=== PATIENT | female | born 1950 | race Caucasian/White ===

== ENCOUNTER → 2017-04-29 | Outpatient (CLI) | payer BC ==
[~2017-04-29] MED LIST: BENZ-13 PO; CEFD300C3 PO; CLOP75TA69 PO
--- NOTE | 2017-04-29 12:19 | Diagnostic Imaging Report ---
INDICATION: Digital mammogram bilateral screening. This study was compared to the prior exam of 04/21/16 and 03/25/15. At this time, there are no current complaints. The current study was also evaluated with a Computer Aided Detection (CAD) system. FINDINGS: There are scattered fibroglandular densities in both breasts which could obscure a lesion. Overall, there does not appear to have been any significant change when compared to the prior exam. No primary or secondary sign of malignancy is noted. IMPRESSION: There is no radiographic evidence for malignancy. ACR BI-RADS Category 1: Negative. Result letter will be mailed to the patient. Note: At least 10% of breast cancer is not imaged by mammography. Dictated by: Dictated on workstation # [id number]
== END ==
LOC: RAD 10:29
PROVIDERS: ATTEND Internal Medicine
DX: Z12.31 Encounter for screening mammogram for malignant neoplasm of breast (principal)
CPT/HCPCS: 77067

== ENCOUNTER → 2018-06-27 | Outpatient (CLI) | payer MEDICARE, OTHER ==
[~2018-06-27] MED LIST changes: -BENZ-13 PO; +BENZ100C18 PO
--- NOTE | 2018-06-27 20:10 | Diagnostic Imaging Report ---
INDICATION: Routine screening. Comparison is made with prior mammogram from 04/29/2017 and 04/21/2016. 2-D and 3-D bilateral screening mammography was performed with a Computer Aided Detection (CAD) system. FINDINGS: Scattered fibronodular densities are identified bilaterally. The parenchymal pattern is stable. No mass or malignant appearing microcalcifications are seen. Axillae are unremarkable. IMPRESSION: No mammographic features suspicious for malignancy are identified. ACR BI-RADS Category 1: Negative. Result letter will be mailed to the patient. Note: At least 10% of breast cancer is not imaged by mammography. Dictated by: Dictated on workstation # [id number]
== END ==
LOC: RAD 11:04
PROVIDERS: ATTEND Internal Medicine
DX: Z12.31 Encounter for screening mammogram for malignant neoplasm of breast (principal)
CPT/HCPCS: 77067

== ENCOUNTER → 2018-11-20 | Outpatient (CLI) | payer MEDICARE, OTHER ==
[2018-11-20 08:50] LABS: CREATININE SERUM 0.93 MG/DL (0.60-1.30)
--- NOTE | 2018-11-20 10:14 | Diagnostic Imaging Report ---
PROCEDURE: CT chest with contrast only. TECHNIQUE: Multiple contiguous axial images were obtained through the chest after administration of intravenous contrast. Auto Exposure Controls were utilized during the CT exam to meet ALARA standards for radiation dose reduction. INDICATION: Shortness of breath. COMPARISON: Comparison is 01/01/2016. FINDINGS: There is severe upper lobe predominant centrilobular and paraseptal emphysema. There is no edema or pneumonia. No pneumothorax. No suspicious pulmonary nodules. Heart size is normal. No pericardial effusion. Aorta is normal in caliber. No central pulmonary embolism. No axillary, supraclavicular or mediastinal lymphadenopathy. Limited views of the upper abdomen reveal a few tiny hepatic lesions which are too small to characterize but almost certainly represent cysts. Gallbladder is normal. No biliary ductal dilation. Portal vein is patent. Pancreas and spleen are normal. There are no suspicious osseous lesions. IMPRESSION: 1. Severe upper lobe predominant paraseptal and centrilobular emphysema, unchanged. Dictated by: Dictated on workstation # [id number]
== END ==
LOC: RT 08:17
PROVIDERS: ATTEND Nurse Practitioner Family
DX: G47.34 Idiopathic sleep related nonobstructive alveolar hypoventilation (principal); J43.9 Emphysema, unspecified; R59.1 Generalized enlarged lymph nodes
CPT/HCPCS: 36415; 71260; 82565; 84520

== ENCOUNTER → 2018-11-22 | Outpatient (CLI) | payer MEDICARE, OTHER ==
[~2018-11-22] MED LIST changes: +RT-ALBUTEROL SULF 2.5 MG/3 ML PRE-MIX VIAL INH ONE; +RT-ALBUTEROL SULF 2.5 MG/3 ML PRE-MIX VIAL ONE
== END ==
LOC: RT 15:53
PROVIDERS: ATTEND Nurse Practitioner Family
DX: J43.9 Emphysema, unspecified (principal); R59.1 Generalized enlarged lymph nodes
CPT/HCPCS: 94060; 94726; 94729

== ENCOUNTER → 2018-12-07 | Outpatient (CLI) | payer MEDICARE, OTHER ==
[~2018-12-07] MED LIST changes: -RT-ALBUTEROL SULF 2.5 MG/3 ML PRE-MIX VIAL INH ONE; -RT-ALBUTEROL SULF 2.5 MG/3 ML PRE-MIX VIAL ONE
--- NOTE | 2018-12-07 08:48 | Diagnostic Imaging Report ---
PROCEDURE: US Hepatic (Liver). TECHNIQUE: Multiple real-time grayscale images were obtained over the right upper quadrant in various projections. INDICATION: Liver cysts. Correlation made with recent CT from 11/20/2018. Liver is 15 cm in size. Previously noted probable cyst on CT are much too small to visualize sonographically. No liver mass is identified. Portal vein is patent and shows normal direction of flow. Gallbladder is without stones or sludge. No wall thickening or biliary duct dilatation is seen. Visualized pancreas unremarkable. The right kidney demonstrates some prominence of the right renal pelvis, similar to CT. No calculi are detected. No ascites. IMPRESSION: Unremarkable hepatic ultrasound. Hepatic low densities noted on CT are much too small to visualize sonographically. Dictated by: Dictated on workstation # [id number]
== END ==
LOC: RAD 07:58
PROVIDERS: ATTEND Internal Medicine
DX: K76.89 Other specified diseases of liver (principal)
CPT/HCPCS: 76705

== ENCOUNTER → 2019-03-08 | Outpatient (CLI) | payer MEDICARE, OTHER ==
--- NOTE | 2019-03-08 09:22 | Diagnostic Imaging Report ---
PROCEDURE: US Hepatic (Liver). TECHNIQUE: Multiple real-time grayscale images were obtained over the right upper quadrant in various projections. INDICATION: Hepatic cysts. Correlation is made with prior liver ultrasound from 12/07/[address] from 11/20/2018. Liver is normal in size at 15.6 cm. As noted on prior ultrasound, the cyst seen by CT cannot be visualized by ultrasound due to the small size. If follow-up is needed, CT would be recommended. No discrete liver mass is identified. No biliary duct dilatation is seen. Gallbladder is without stones or sludge. No wall thickening or biliary ductal dilatation is seen. Portal vein is patent and shows normal direction of flow. Pancreas is unremarkable. The right kidney does show slightly prominent renal pelvis, which may be owing to an extrarenal pelvis. No hydronephrosis is seen. There is no ascites. IMPRESSION: Nonvisualized liver cysts. Follow-up with CT would be recommended. The study is otherwise unremarkable. Dictated by: Dictated on workstation # [id number]
== END ==
LOC: RAD 07:57
PROVIDERS: ATTEND Internal Medicine
DX: K76.89 Other specified diseases of liver (principal)
CPT/HCPCS: 76705

== ENCOUNTER → 2019-07-04 | Outpatient (CLI) | payer MEDICARE, OTHER ==
--- NOTE | 2019-07-04 12:27 | Diagnostic Imaging Report ---
INDICATION: Routine screening. COMPARISON: 06/27/2018 and 04/29/2017. TECHNIQUE: 2D and 3D bilateral screening mammography was performed with CAD. FINDINGS: Scattered fibroglandular densities are identified bilaterally. No dominant mass or malignant appearing microcalcifications are seen. The axillae are unremarkable. IMPRESSION: No mammographic features suspicious for malignancy are identified. ACR BI-RADS Category 1: Negative. Result letter will be mailed to the patient. Note: At least 10% of breast cancer is not imaged by mammography. Dictated by: Dictated on workstation # [id number]
== END ==
LOC: RAD 09:55
PROVIDERS: ATTEND Nurse Practitioner
DX: Z12.31 Encounter for screening mammogram for malignant neoplasm of breast (principal)
CPT/HCPCS: 77067

== ENCOUNTER → 2020-03-03 | Outpatient (CLI) | payer MEDICARE, OTHER | LOC: LABNPT 08:40 | PROVIDERS: ATTEND Internal Medicine | DX: U07.1 COVID-19 (principal) | CPT/HCPCS: 87804; U0002; 87635 ==

== ENCOUNTER → 2021-01-05 | Outpatient (CLI) | payer MEDICARE, OTHER ==
[~2021-01-05] MED LIST changes: +RT-ALBUTEROL SULF 2.5 MG/3 ML PRE-MIX VIAL INH ONE
== END ==
LOC: RT 13:00
PROVIDERS: ATTEND Nurse Practitioner Family
DX: J44.9 Chronic obstructive pulmonary disease, unspecified (principal)
CPT/HCPCS: 94060; 94726; 94729

== ENCOUNTER → 2021-01-12 | Outpatient (CLI) | payer MEDICARE, OTHER ==
[~2021-01-12] MED LIST changes: -RT-ALBUTEROL SULF 2.5 MG/3 ML PRE-MIX VIAL INH ONE
--- NOTE | 2021-01-12 14:09 | Diagnostic Imaging Report ---
INDICATION: COPD. FINDINGS: The heart size is normal. Lungs are clear. No pleural effusion or pneumothorax. The mediastinum is unremarkable. Air trapping compatible with COPD. IMPRESSION: COPD, otherwise unremarkable. Dictated by: Dictated on workstation # [id number]
== END ==
LOC: RAD 13:02
PROVIDERS: ATTEND Nurse Practitioner Family
DX: J44.9 Chronic obstructive pulmonary disease, unspecified (principal)
CPT/HCPCS: 71046

== ENCOUNTER → 2021-01-22 | Outpatient (CLI) | payer MEDICARE, OTHER ==
--- NOTE | 2021-01-22 12:46 | Diagnostic Imaging Report ---
INDICATION: Routine screening. COMPARISON is made with prior mammograms from 07/04/2019 and 06/27/2018. 2-D and 3-D bilateral screening mammography was performed with CAD. Scattered fibroglandular densities are identified bilaterally. The parenchymal pattern is stable. No mass or malignant-appearing microcalcifications are seen. Axillae are unremarkable. IMPRESSION: BI-RADS Category 1 No mammographic features suspicious for malignancy are identified. ACR BI-RADS Category 1: Negative. Result letter will be mailed to the patient. Note: At least 10% of breast cancer is not imaged by mammography. Dictated by: Dictated on workstation # [id number]
== END ==
LOC: RAD 10:30
PROVIDERS: ATTEND Physician Assistant
DX: Z12.31 Encounter for screening mammogram for malignant neoplasm of breast (principal)
CPT/HCPCS: 77063; 77067

== ENCOUNTER → 2021-02-09 | Outpatient (CLI) | payer MEDICARE, OTHER ==
[~2021-02-09] VITALS: Ht 162.6 cm; Wt 74.9 kg
[~2021-02-09] MED LIST changes: +ATOR10TA66 PO; +CETI10TA49 PO; +DOCU50LI11 PO; +FLUT1BLS3 IH; +MONT10TA32 PO; +MULT-593 PO; +OMEG-158 PO; +RT-ALBUINH INH
== END | disposition home or self-care (01) ==
LOC: PREOP 05:51
PROVIDERS: ATTEND Internal Medicine
DX: Z01.818 Encounter for other preprocedural examination (principal)

== ENCOUNTER 2021-02-20 08:00 | Day surgery (SDC) | payer MEDICARE, OTHER ==
--- NOTE | 2021-02-09 06:24 | HISTORY AND PHYSICAL ---
DATE OF SERVICE: COLONOSCOPY HISTORY AND PHYSICAL HISTORY OF PRESENT ILLNESS: The patient is a 70-year-old white female referred by Dr. Vega for screening colonoscopy. She is deemed to be of slightly higher than average risk only for the fact that she has been having some intermittent bright red blood per rectum that she attributes to hemorrhoids. She had colonoscopy she believes a little over 10 years ago and there is no record of colonoscopy in review of her electronic medical record, which goes back 9 or 10 years. She does not recall if there are any issues, polyps etc. She is not aware of any family history for GI tract malignancy. She has had no abdominal pain and no change in health status. PAST MEDICAL HISTORY: Significant for COPD. She has a [id number] smoking history, but quit smoking over 10 years ago. She does utilize oxygen at night only, gets around during the day. Denying any increased dyspnea on exertion over baseline. She has a history of hyperlipidemia with no known history of coronary artery disease. PAST SURGICAL HISTORY: She reports no past surgeries, previous record indicates right cataract extraction. ALLERGIES: She reports no known medical allergies. SOCIAL HISTORY: She is retired, , 79-[id number]-[id number] smoking history. No significant alcohol intake. FAMILY HISTORY: She reports no family history for GI tract malignancy. REVIEW OF SYSTEMS: CONSTITUTIONAL: Denies night sweats, chills, fever, or change in weight. PULMONARY: Reports stable exercise tolerance, stable nonproductive cough without chest pain and no wheezing as long as she uses her inhalers. CARDIOVASCULAR: Denies orthopnea, PND, pedal edema, syncope or presyncope. GASTROINTESTINAL: As noted in the HPI. PHYSICAL EXAMINATION: GENERAL: Reveals an alert, oriented, well kempt white female, in no acute distress, respiratory rate 16 and nonlabored. VITAL SIGNS: Blood pressure 150/90, weight 168 pounds. HEENT: Unremarkable. Sclerae nonicteric. CHEST: Clear to auscultation, although there is some diminished breath sounds posteriorly. No wheezing, rales or rhonchi appreciated. CARDIOVASCULAR: Reveals a regular rate and rhythm without significant murmur, S3 or S4. ABDOMEN: Soft, supple without mass, organomegaly or tenderness. EXTREMITIES: Reveal no cyanosis, clubbing or edema. RECTAL: Deferred at the time of colonoscopy. ASSESSMENT AND PLAN: The patient is being set up for screening colonoscopy. Does have reported symptomatic hemorrhoids, which we will discuss with the patient further after colonoscopy. Thank you for the referral of this pleasant lady. Job ID: [id number] DocumentID: [id number] Dictated Date: 01/30/2021 12:39:23 Runway Model Date: 01/30/2021 13:06:01 Dictated By: JANNETTE APPIAH MD
[~2021-02-20] VITALS: Ht 162.6 cm; Wt 74.9 kg
[2021-02-20] MEDS ORDERED: LACTATED RINGERS 1,000 ML IV STA (08:17)
[2021-02-20] MEDS ORDERED: LACTATED RINGERS 1,000 ML IV ONE (08:19)
--- NOTE | 2021-02-20 08:21 | Pre-Op Note & Conscious Sedat ---
Pre-Operative Progress Note H&P Reviewed The H&P was reviewed, patient examined and no changes noted. Date H&P Reviewed: Feb 20, 2021 Time H&P Reviewed: 08:21 Conscious Sedation Pre-Proced ASA Score 2 For ASA 3 and 4: Consider anesthesia and medical clearance. Also, for patients with a history of failed moderate sedation consider anesthesia. Airway Lungs Heart ASA score ASA 1: a normal healthy patient ASA 2: a patient with a mild systemic disease (mid diabetes, controlled hypertension, obesity ASA 3: a patient with a severe systemic disease that limits activity (angina, COPD, prior Myocardial infarction) ASA 4: a patient with an incapacitating disease that is a constant threat to life (CHF, renal failure) ASA 5: a moribund patient not expected to survive 24 hrs. (ruptured aneurysm) ASA 6: a declared brain- patient whose organs are being harvested. For emergent operations, add the letter E after the classification Mallampati Classification Grade 2 Sedation Plan Analgesia, Amnesia, Plan communicated to team members, Discussed options with patient/fam, Discussed risks with patient/fam The patient is an appropriate candidate to undergo the planned procedure, sedation, and anesthesia. The patient immediately re-assessed prior to indication. JANNETTE APPIAH MD Feb 20, 2021 08:21
[2021-02-20] MEDS ORDERED: LIDOCAINE JELLY 2% 6 ML SYRINGE MM PRN (08:30)
[2021-02-20 08:42] VITALS: BP 131/66
[2021-02-20] MEDS ORDERED: PROPOFOL INJECTION 50 ML IV ONE (09:06)
[2021-02-20 09:50] VITALS: BP 130/63
[2021-02-20 09:55] VITALS: BP 140/77
[2021-02-20 10:00] VITALS: BP 130/57
[2021-02-20 10:30] VITALS: BP 127/65
[2021-02-20 10:45] VITALS: BP 127/65
--- NOTE | 2021-02-20 13:33 | Anesthesia-General Post-Op ---
MAC Patient Condition Mental Status/LOC: Same as Preop Cardiovascular: Satisfactory Nausea/Vomiting: Absent Respiratory: Satisfactory Pain: Controlled Complications: Absent Post Op Complications Complications None Follow Up Care/Instructions Patient Instructions None needed. Anesthesiology Discharge Order Discharge Order Patient is doing well, no complaints, stable vital signs, no apparent adverse anesthesia problems. No complications reported per nursing. KENDRA CEVALLOS CRNA Feb 20, 2021 13:33
--- NOTE | 2021-02-20 14:10 | OPERATIVE REPORT ---
DATE OF SERVICE: SCREENING COLONOSCOPY The patient was placed in the left lateral decubitus position. Prior to undergoing colonoscopy, digital rectal evaluation was performed. Anal sphincter tone was normal and the perianal reflexes intact. Digital evaluation was compatible with several small grade I-II internal hemorrhoids. No other abnormalities were noted on digital inspection of anal canal or distal rectal vault. The colonoscope was then inserted into the rectum and under direct visualization advanced to cecum. The quality of prep was fair. FINDINGS: There was no evidence for external hemorrhoids. The patient did have telangiectasia and just with the passage of the scope there was a small amount of bright red blood. There are several grade I-II internal hemorrhoid complexes were noted. No other rectal abnormalities were appreciated. Moderate sigmoid diverticular disease is present and there were changes compatible with melanosis coli more prominent in the right colon. There was no evidence to suggest acute diverticulitis. Present in the mid descending colon was a 6 mm sessile polyp. It was biopsied and ablated with no subsequent blood loss. Remainder of the descending colon was unremarkable. Splenic flexure and transverse colon were unremarkable. Present in the hepatic flexure was a 3 mm sessile polyp. It was removed via cold forceps with no blood loss. The ascending colon and cecum were unremarkable. ASSESSMENT: Two small polyps were removed. We will need to await histopathology report before making future surveillance colonoscopic recommendations. The patient exhibited findings compatible with melanosis coli. A biopsy was obtained from the ascending colon where changes were more prominent. The patient did have telangiectatic distal rectal vessels and several small internal hemorrhoid complexes, the source of her bright red blood per rectum. Moderate diverticular disease was present without evidence for acute diverticulitis. Further recommendations will be forthcoming histopathology evaluation. I thank you for the referral of this pleasant lady. Job ID: [id number] DocumentID: [id number] Dictated Date: 02/20/2021 09:52:24 [employer] Date: 02/20/2021 14:09:37 Dictated By: JANNETTE APPIAH MD [facility]
== END 2021-02-20 10:45 | disposition home or self-care (01) ==
LOC: ENDO 08:00
PROVIDERS: ATTEND Internal Medicine
DX: Z12.11 Encounter for screening for malignant neoplasm of colon (principal); K63.89 Other specified diseases of intestine; D12.3 Benign neoplasm of transverse colon; D12.4 Benign neoplasm of descending colon; K64.0 First degree hemorrhoids; K64.1 Second degree hemorrhoids; K57.30 Diverticulosis of large intestine without perforation or abscess without bleeding; E78.5 Hyperlipidemia, unspecified; I25.10 Atherosclerotic heart disease of native coronary artery without angina pectoris; J44.9 Chronic obstructive pulmonary disease, unspecified; K21.9 Gastro-esophageal reflux disease without esophagitis; Z79.899 Other long term (current) drug therapy; Z87.891 Personal history of nicotine dependence

== ENCOUNTER → 2022-02-08 | Outpatient (CLI) | payer MEDICARE, OTHER ==
[~2022-02-08] MED LIST changes: +MONT-40 PO; -MONT10TA32 PO
--- NOTE | 2022-02-08 14:40 | Diagnostic Imaging Report ---
INDICATION: Routine screening. COMPARISON: 01/22/2021 and 07/04/2019. TECHNIQUE: 2D and 3D bilateral screening mammography was performed with CAD. FINDINGS: Scattered fibroglandular densities are identified bilaterally. No mass or malignant-appearing microcalcifications are seen. The axillae are unremarkable. IMPRESSION: No mammographic features suspicious for malignancy are identified. ACR BI-RADS Category 1: Negative. Result letter will be mailed to the patient. Note: At least 10% of breast cancer is not imaged by mammography. Dictated by: Dictated on workstation # [id number]
== END ==
LOC: RAD 09:43
PROVIDERS: ATTEND Nurse Practitioner Family
DX: Z12.31 Encounter for screening mammogram for malignant neoplasm of breast (principal)
CPT/HCPCS: 77063; 77067

== ENCOUNTER → 2023-03-21 | Outpatient (CLI) | payer MEDICARE ==
[~2023-03-21] MED LIST changes: +CLOP-31 PO; -CLOP75TA69 PO
--- NOTE | 2023-03-21 10:10 | Diagnostic Imaging Report ---
INDICATION: Routine screening. COMPARISON: 02/08/2022 and 01/22/2021. TECHNIQUE: 2D and 3D bilateral screening mammography was performed with CAD. FINDINGS: Scattered fibroglandular densities are identified bilaterally. The parenchymal pattern is stable. No mass or malignant-appearing microcalcifications are identified. The axillae are unremarkable. IMPRESSION: No mammographic features suspicious for malignancy are identified. ACR BI-RADS Category 1: Negative. Result letter will be mailed to the patient. Note: At least 10% of breast cancer is not imaged by mammography. Dictated by: Dictated on workstation # [id number]
== END ==
LOC: RAD 08:33
PROVIDERS: ATTEND Internal Medicine
DX: Z12.31 Encounter for screening mammogram for malignant neoplasm of breast (principal)
CPT/HCPCS: 77063; 77067